=== PATIENT | male | born 2000 | race Hispanic/Latino ===

== ENCOUNTER 2018-04-06 21:18 | Emergency (ER) | payer BC ==
[2018-04-06 22:23] LABS: BASO # 0.1 K/uL (0.0-0.2); BASO % 0.6 % (0.0-2.0); EOS # 0.1 K/uL (0.0-0.7); EOS % 0.8 % (0.0-4.0); HEMOGLOBIN 15.2 g/dL (12.0-18.0); LYMPH # 3.3 K/uL (1.0-4.3); LYMPH % 22.9 % (20.0-40.0); MEAN CELL VOLUME 87.5 fl (80.0-94.0); MEAN CORPUSCULAR HEMOGLOBIN 29.4 pg (27.0-31.0); MEAN CORPUSCULAR HGB CONC 33.6 g/dL (33.0-37.0); MEAN PLATELET VOLUME 9.9 fl (7.2-11.7); MONO # 0.9 K/uL (0.0-0.8); MONO % 6.5 % (0.0-10.0); NEUT % 69.2 % (50.0-75.0); RBC 5.18 Mil/uL (4.40-5.90); RED CELL DISTRIBUTION WIDTH 13.1 % (11.5-14.5); WHITE BLOOD COUNT 14.5 K/uL (4.8-10.8)
[2018-04-06 22:45] LABS: ALB/GLOB RATIO 1.3 (1.0-2.1); ALBUMIN 4.5 g/dL (3.5-5.0); ALT/SGPT 33 U/L (21-72); AST/SGOT 28 U/L (17-59); BLOOD UREA NITROGEN 23 mg/dl (9-20); CALCIUM 9.3 mg/dL (8.4-10.2); GFR NON-AFRICAN AMERICAN > 60
[2018-04-06 22:49] LABS: BARBITURATES, UR NEGATIVE (NEGATIVE); BENZODIAZEPINES, UR NEGATIVE (NEGATIVE); OPIATES, UR NEGATIVE (NEGATIVE); PHENCYCLIDINE, UR NEGATIVE (NEGATIVE)
--- NOTE | 2018-04-07 00:18 | ED PDOC ---
HPI: Seizure Time Seen by Provider: 04/06/18 21:30 Chief Complaint (Nursing): Weakness/Neurological Deficit Past Medical History Vital Signs: Last Vital Signs Temp 98.6 F 04/06/18 21:23 Pulse 119 H 04/06/18 21:23 Resp 20 04/06/18 21:23 BP 150/84 04/06/18 21:23 Pulse Ox 100 04/06/18 21:23 - Family History Family History: States: Unknown Family Hx - Home Medications Home Medications: Ambulatory Orders Medication Instructions Recorded Oseltamivir [Tamiflu] 75 mg PO BID #10 cap 07/22/15 Ibuprofen [Motrin Tab] 600 mg PO Q8 PRN #30 tab 04/06/18 - Allergies Allergies/Adverse Reactions: Allergies Allergy/AdvReac Type Severity Reaction Status Date / Time No Known Allergies Allergy Verified 04/06/18 21:22 - Laboratory Results Result Diagrams: 04/06/18 22:10 04/06/18 22:10 - ECG O2 Sat by Pulse Oximetry: 100 Disposition - Clinical Impression Clinical Impression: Paresthesia, Headache - Disposition Referrals: Vitaliy Perez MD [Staff Provider] - 04/09/18 (FOLLOW UP WITH DR KATHARINE Mitchell) Condition: IMPROVED Prescriptions: Ibuprofen [Motrin Tab] 600 mg PO Q8 PRN #30 tab PRN Reason: Headache Instructions: Headache, Adult (DC), Paresthesias (DC)
[2018-04-07 00:23] VITALS: BP 137/81; RESP 16; TEMP 98.2
[2018-04-07 00:24] VITALS: O2SAT 100
--- NOTE | 2018-04-07 00:24 | ED PDOC ---
HPI: Neurologic - General Time Seen by Provider: 04/06/18 21:30 Chief Complaint (Nursing): Weakness/Neurological Deficit Chief Complaint (Provider): Weakness/Neurological Deficit Source: patient Exam Limitations: no limitations - History of Present Illness Severity: none Allergies/Adverse Reactions: Allergies No Known Allergies Allergy (Verified 04/06/18 21:22) Home Medications: Ambulatory Orders Oseltamivir [Tamiflu] 75 mg PO BID #10 cap 07/22/15 RX: Ibuprofen [Motrin Tab] 600 mg PO Q8 PRN #30 tab 04/06/18 Additional Complaint(s): 18 y/o male presents to the ED for evaluation of left sided numbness, onset just prior to arrival. Patient reports of numbness to the left leg that resolved spontaneously after a few minutes, then left arm numbness that also resolved spontaneously and left sided facial numbness thus causing patient to call 911. Patient reports of no symptoms on arrival. While in the ER, patient reports of having one episode of "funny" vision to the left eye. Patient states he has had 8 episodes of similar symptoms since he was [age] and had self diagnosed himself with visual migraines. Patient is now complaining of headaches. Patient denies alcohol or drug use and recent stressers. Patient states he has been recently been feeling more tired than usual despite adequate sleep. PMD: None Provided Past Medical History Reviewed: Historical Data, Nursing Documentation, Vital Signs Vital Signs: Last Vital Signs Temp 98.6 F 04/06/18 21:23 Pulse 119 H 04/06/18 21:23 Resp 20 04/06/18 21:23 BP 150/84 04/06/18 21:23 Pulse Ox 100 04/06/18 21:23 - Medical History PMH: No Chronic Diseases - Surgical History Surgical History: Hernia Repair (bilateral) Other surgeries: Adenoidectomy - Family History Family History: States: Unknown Family Hx - Social History Current smoker - smoking cessation education provided: No Alcohol: None Drugs: Denies - Home Medications Home Medications: Ambulatory Orders Medication Instructions Recorded Oseltamivir [Tamiflu] 75 mg PO BID #10 cap 07/22/15 RX: Ibuprofen [Motrin Tab] 600 mg PO Q8 PRN #30 tab 04/06/18 - Allergies Allergies/Adverse Reactions: Allergies Allergy/AdvReac Type Severity Reaction Status Date / Time No Known Allergies Allergy Verified 04/06/18 21:22 Review of Systems ROS Statement: Except As Marked, All Systems Reviewed And Found Negative (as per HPI) Eyes: Positive for: Vision Change Neurological: Positive for: Numbness (left sided numness to the left leg, arm and face), Headache Physical Exam - Reviewed Nursing Documentation Reviewed: Yes Vital Signs Reviewed: Yes - Physical Exam Appears: Positive for: No Acute Distress (anxious appearing) Head Exam: Positive for: ATRAUMATIC, NORMOCEPHALIC Skin: Positive for: Warm, Dry Eye Exam: Positive for: EOMI, PERRL. Negative for: Nystagmus ENT: Positive for: Pharynx Is (clear). Negative for: Pharyngeal Erythema, Tonsillar Exudate Neck: Positive for: Painless ROM, Supple Cardiovascular/Chest: Positive for: Regular Rate, Rhythm, Chest Non Tender. Negative for: Murmur Respiratory: Positive for: Normal Breath Sounds. Negative for: Wheezing Gastrointestinal/Abdominal: Positive for: Soft. Negative for: Tenderness Back: Positive for: Normal Inspection. Negative for: Decreased ROM Extremity: Positive for: Normal ROM. Negative for: Deformity Lymphatic: Negative for: Adenopathy Neurologic/Psych: Positive for: Alert, rn transitional care II-XII (Intact), Oriented (x3), Cerebellar Tests (Normal finger to nose cerebellar test), Other (Normal Speech). Negative for: Motor/Sensory Deficits - Laboratory Results Result Diagrams: 04/06/18 22:10 04/06/18 22:10 - ECG ECG Rhythm: Positive for: Normal QRS, Normal ST Segment, Sinus Rhythm Rate: 98 O2 Sat by Pulse Oximetry: 100 (RA) Pulse Ox Interpretation: Normal Medical Decision Making Medical Decision Making: Time: 2209 Impression: Left sided paresthesia and headache. Differentials include but not limited to anxiety, electrolyte abnormality, anemia, intracranial mass and atypical migraine. Plan: -- CT Head w/o Contrast -- EKG -- CMP -- Urine Drug Screen -- Magnesium -- Phosphorus -- TSH -- ED Urine Dipstick -- CBC with differentials -- Toradol 30 mg IV -- Tylenol 975 mg PO -- Magazine Designer -- IV Insertion -- Glucose, Blood, POC Time: 1125 CT HEAD RESULTS FINDINGS: The ventricles and sulci are symmetric bilaterally. There is no evidence of acute hemorrhage or infarct. There is no midline shift, mass effect, or extra- axial fluid collection. The osseous structures are unremarkable. The visualized paranasal sinuses and mastoid air cells are clear. IMPRESSION: Negative study. Electronically signed on Apr 06, 2018 11:25:15 ED by: Heriberto Duval M.D., MBA Certified by [employer] [facility] Fellowship Trained MRI and CT Specialist Labs unremarkable. Symptoms have not returned. DW pt findings and plan of care.Followup neurology. Scribe Attestation: Documented by Shu Chen, acting as a scribe for Bhumika Cook MD. Provider Scribe Attestation: All medical record entries made by the Scribe were at my direction and personally dictated by me. I have reviewed the chart and agree that the record accurately reflects my personal performance of the history, physical exam, medical decision making, and the department course for this patient. I have also personally directed, reviewed, and agree with the discharge instructions and disposition. Disposition - Clinical Impression Clinical Impression: Paresthesia, Headache - Disposition Referrals: Vitaliy Alcantar MD [Staff Provider] - 04/09/18 (FOLLOW UP WITH DR ALCANTAR NEXT WEEK) Disposition: Routine/Home Disposition Time: 23:30 Condition: IMPROVED Prescriptions: RX: Ibuprofen [Motrin Tab] 600 mg PO Q8 PRN #30 tab PRN Reason: Headache Instructions: Headache, Adult (DC), Paresthesias (DC) Forms: [facility] (Welsh)
[2018-04-07 00:30] VITALS: PULSE 98
--- NOTE | 2018-04-07 08:40 | CT ---
Date of service: 04/06/2018 PROCEDURE: CT HEAD WITHOUT CONTRAST. HISTORY: parasthesias LEFT side COMPARISON: None available. TECHNIQUE: Axial computed tomography images were obtained through the head/brain without intravenous contrast. Radiation dose: Total exam DLP = 798.0 mGy-cm. This CT exam was performed using one or more of the following dose reduction techniques: Automated exposure control, adjustment of the mA and/or kV according to patient size, and/or use of iterative reconstruction technique. FINDINGS: HEMORRHAGE: No intracranial hemorrhage. BRAIN: No mass effect or edema. No atrophy or chronic microvascular ischemic changes. VENTRICLES: Unremarkable. No hydrocephalus. CALVARIUM: Unremarkable. PARANASAL SINUSES: Unremarkable as visualized. No significant inflammatory changes. MASTOID AIR CELLS: Unremarkable as visualized. No inflammatory changes. OTHER FINDINGS: None. IMPRESSION: Normal CT of the Head.
--- NOTE | 2018-04-07 11:51 | CARD ---
APPROVED REPORT Date of service: 04/06/2018 EKG Measurement Heart [id number] <Conclusion> Normal sinus rhythm Normal ECG
== END 2018-04-07 00:23 | disposition home or self-care (01) ==
LOC: H.ER 21:18
DX: R20.0 Anesthesia of skin (principal); R51 Headache
CPT/HCPCS: 70450; 80053; 82948; 83735; 84100; 84443; 85025; 93005; 96374; 99283; G0480; J1885

== ENCOUNTER 2018-04-08 13:40 | Emergency (ER) | payer BC ==
--- NOTE | 2018-04-08 14:17 | CT ---
Date of service: 04/08/2018 PROCEDURE: CT HEAD WITHOUT CONTRAST. HISTORY: stroke COMPARISON: Comparison made with CT scan brain 04/06/2018 TECHNIQUE: Axial computed tomography images were obtained through the head/brain without intravenous contrast. Radiation dose: Total exam DLP = 833.44 mGy-cm. This CT exam was performed using one or more of the following dose reduction techniques: Automated exposure control, adjustment of the mA and/or kV according to patient size, and/or use of iterative reconstruction technique. FINDINGS: Note that the examination is limited by motion artifact. HEMORRHAGE: No acute parenchymal, subarachnoid nor extra-axial hemorrhage seen within limitation of this exam.. BRAIN: No obvious large acute infarct. Note that the possibility of a small hyperacute infarct cannot be excluded. Clinical correlation recommended. VENTRICLES: Unremarkable. No hydrocephalus. CALVARIUM: No acute calvarial fractures PARANASAL SINUSES: Unremarkable as visualized. No significant inflammatory changes. MASTOID AIR CELLS: Unremarkable as visualized. No inflammatory changes. OTHER FINDINGS: None. IMPRESSION: Limited motion degraded study. No definitive radiographic evidence of acute intracranial hemorrhage. These findings discussed with Dr. Terry at approximately 2:10 p.m. with written down and read back verification.
[2018-04-08 14:34] LABS: BASO # 0.1 K/uL (0.0-0.2); BASO % 0.5 % (0.0-2.0); EOS # 0.1 K/uL (0.0-0.7); EOS % 0.6 % (0.0-4.0); HEMOGLOBIN 15.5 g/dL (12.0-18.0); LYMPH # 2.8 K/uL (1.0-4.3); LYMPH % 26.4 % (20.0-40.0); MEAN CELL VOLUME 87.1 fl (80.0-94.0); MEAN CORPUSCULAR HEMOGLOBIN 29.5 pg (27.0-31.0); MEAN CORPUSCULAR HGB CONC 33.8 g/dL (33.0-37.0); MEAN PLATELET VOLUME 10.2 fl (7.2-11.7); MONO # 0.8 K/uL (0.0-0.8); MONO % 7.4 % (0.0-10.0); NEUT # 6.9 K/uL (1.8-7.0); NEUT % 65.1 % (50.0-75.0); RBC 5.27 Mil/uL (4.40-5.90); RED CELL DISTRIBUTION WIDTH 13.1 % (11.5-14.5); WHITE BLOOD COUNT 10.7 K/uL (4.8-10.8)
[2018-04-08 14:38] LABS: PROTHROMBIN TIME 11.4 Seconds (9.8-13.1)
[2018-04-08 14:41] LABS: PARTIAL THROMBOPLASTIN TIME 32.5 Seconds (25.6-37.1)
[2018-04-08 14:44] LABS: ALB/GLOB RATIO 1.3 (1.0-2.1); ALBUMIN 4.6 g/dL (3.5-5.0); ALT/SGPT 30 U/L (21-72); AST/SGOT 24 U/L (17-59); BLOOD UREA NITROGEN 19 mg/dl (9-20); CALCIUM 9.9 mg/dL (8.4-10.2); GFR NON-AFRICAN AMERICAN > 60
[2018-04-08 15:35] VITALS: RESP 19
--- NOTE | 2018-04-08 15:37 | ED PDOC ---
HPI:STROKE - Time Time: 13:43 - Historian Historian: Patient - Chief Complaint Chief Complaint: Numbness (Right sided), Slurred speech, Mental status change - Onset Date: 04/08/18 Time: 13:13 Onset: This afternoon - Timing Timing: Currently Symptomatic - Location Location: Mental Status, Speech - Severity of pain Maximum severity:: None - Exacerbated by Exacerbated by:: Nothing - Relieved by Relieved by:: Nothing - Notes: Notes:: 18 y/o male with no significant PMHx brought in by EMS for a possible stroke, onset prior to arrival. EMS received a call from the patient's brother who states the patient appeared to be not normal. There is no report of seizure activity. On arrival, patient was behaving normally. Patient complains of right sided numbness and noticing slurred speech and aphasia. However, patient states symptoms resolved prior to arrival. While in the ER, patient reports he does not feel well but has no specific complaint. Patient is a good historian. Denies headache and numbness. In addition, patient was seen here two days ago for similar symptoms and had some neurologic workup performed that resulted unremarkable. Patient was then discharged home. Patient reports of going through a los of stress. When asked if he would like to speak to a psychiatrist or a case aide, he responded "Yes". PMD: none NIHSS Stroke Scale - Date/Time Evaluation Performed Date Performed: 04/08/18 Time Performed: 13:50 When Was NIHSS Performed: Baseline - How Severe is the Stroke Level of Consciousness: 0=Alert LOC to Questions: 0=Both comments correct LOC to commands: 0=Obeys both correctly Best Gaze: 0=Normal Visual: 0=No visual loss Facial: 0=Normal Motor Arm - Left: 0=No drift Motor Arm - Right: 0=No drift Motor Leg - Left: 0=No drift Motor Leg - Right: 0=No drift Sensory: 0=Normal Best Language: 0=No aphasia Dysarthia: 0=Normal articulation Extinction & Inattention (Neglect): 0=Normal, no object rTPA Inclusion/Exclusion - Refusal of Treatment Patient Refused Treatment: No - Inclusion Criteria for Altepase Patient is 18 years or Older: Yes The Clinical Diagnosis of Ischemic Stroke That is Causing a Potentially Disabling Neurological Deficit: No Time of Onset is Well Established to be Less Than 270 Minute Before Treatment Would Begin: Yes Risk/Benefit Discussed With Patient/Family Member Present: No - Exclusion Criteria for Altepase Uncontrolled Hypertension at Time of Treatment (Systolic BP above 185 or Diastolic BP above 110 mmHg): No Active Internal Bleeding: No Known Bleeding Diathesis Including but Not Limited to: Platelets Below 100,000/mm,PTT Above 40 sec After Heparin Use, Current Use of Oral Anitcoagulant With INR Greater Than 1.7 or PT Greater Than 15 secs: No Evidence of an Intracranial Hemorrhage: No Evidence of Major Acute Infarct With Signs Greater Than 1/3 MCA Territory: No Suspicion of Subarachnoid Hemorrhage on Pretreatment Evaluation Even if CT Head Negative For Hemorrhage: No Past Medical History Reviewed: Historical Data, Nursing Documentation, Vital Signs Vital Signs: Last Vital Signs Temp 97.7 F 04/08/18 15:34 Pulse 80 04/08/18 15:34 Resp 19 04/08/18 15:34 BP 130/70 04/08/18 15:34 Pulse Ox 99 04/08/18 15:34 - Medical History PMH: No Chronic Diseases - Surgical History Surgical History: No Surg Hx, Hernia Repair (bilateral) - Family History Family History: States: Unknown Family Hx - Social History Current smoker - smoking cessation education provided: No Alcohol: None Drugs: Denies - Home Medications Home Medications: Ambulatory Orders Medication Instructions Recorded Oseltamivir [Tamiflu] 75 mg PO BID #10 cap 07/22/15 Ibuprofen [Motrin Tab] 600 mg PO Q8 PRN #30 tab 04/06/18 - Allergies Allergies/Adverse Reactions: Allergies Allergy/AdvReac Type Severity Reaction Status Date / Time No Known Allergies Allergy Verified 04/06/18 21:22 Review of Systems ROS Statement: Except As Marked, All Systems Reviewed And Found Negative Neurological: Positive for: Numbness (at onset ONLY), Change in Speech, Other (Possible stroke). Negative for: Headache Physical Exam - Reviewed Nursing Documentation Reviewed: Yes Vital Signs Reviewed: Yes - Physical Exam Appears: Positive for: No Acute Distress Head Exam: Positive for: ATRAUMATIC, NORMOCEPHALIC Skin: Positive for: Normal Color, Warm, Dry Eye Exam: Positive for: Normal appearance, EOMI, PERRL Neck: Positive for: Normal, Painless ROM Cardiovascular/Chest: Positive for: Regular Rate, Rhythm. Negative for: Murmur Respiratory: Positive for: Normal Breath Sounds. Negative for: Respiratory Distress Gastrointestinal/Abdominal: Positive for: Normal Exam, Soft. Negative for: Tenderness Back: Positive for: Normal Inspection. Negative for: L CVA Tenderness, R CVA Tenderness Extremity: Positive for: Normal ROM. Negative for: Pedal Edema, Deformity Neurologic/Psych: Positive for: Alert, Oriented. Negative for: Motor/Sensory Deficits - Laboratory Results Result Diagrams: 04/08/18 14:00 04/08/18 14:00 - ECG O2 Sat by Pulse Oximetry: 99 (RA) Pulse Ox Interpretation: Normal - Progress Re-evaluation Time: 16:53 Condition: Re-examined, Improved Medical Decision Making Medical Decision Making: Time: 1400 Impression: Paresthesia, Anxiety Differentials include but not limited to atypical seizures, atypical migraines, panic disorder with psychosympatic syndrome. Plan: -- EKG -- CT Head w/o contrast -- Health And Safety Inspector -- Glucose, Blood, POC -- Nursing Swallow Screen -- Alcohol Serum -- CMP -- CBC with Differentials -- PTT -- Prothrombin Time Time: [address] RESULTS FINDINGS: Note that the examination is limited by motion artifact. HEMORRHAGE: No acute parenchymal, subarachnoid nor extra-axial hemorrhage seen within limitation of this exam.. BRAIN: No obvious large acute infarct. Note that the possibility of a small hyperacute infarct cannot be excluded. Clinical correlation recommended. VENTRICLES: Unremarkable. No hydrocephalus. CALVARIUM: No acute calvarial fractures PARANASAL SINUSES: Unremarkable as visualized. No significant inflammatory changes. MASTOID AIR CELLS: Unremarkable as visualized. No inflammatory changes. OTHER FINDINGS: None. IMPRESSION: Limited motion degraded study. No definitive radiographic evidence of acute intracranial hemorrhage. These findings discussed with Dr. Terry at approximately 2:10 p.m. with xuan jorgensen and read back verification. Time: 1530 Plan: -- Urine Drug Screen Time: 1638 -- Spoke to neurologist, Dr. Singh who agrees with plan and ER assessment of lab and CT results. Dr. Singh states it does not appear to be a CVA but appears to be more of a psychological disorder. Patient is to be referred to crisis for evaluation. Patient is medically clear and is stable for discharge, pending crisis referrals for outpatient treatment. Scribe Attestation: Documented by Shu Chen, acting as a scribe Radha Terry MD. Provider Scribe Attestation: All medical record entries made by the Scribe were at my direction and personally dictated by me. I have reviewed the chart and agree that the record accurately reflects my personal performance of the history, physical exam, medical decision making, and the department course for this patient. I have also personally directed, reviewed, and agree with the discharge instructions and disposition. Disposition - Clinical Impression Clinical Impression: Paresthesia, Panic attack - Patient ED Disposition Is Patient to be Admitted: No Counseled Patient/Family Regarding: Studies Performed, Diagnosis, Need For Followup - Disposition Referrals: [facility] [Outside] Vitaliy Perez MD [Staff Provider] - Disposition: Routine/Home Disposition Time: 16:54 Condition: GOOD Additional Instructions: HUGO GRIFFIN, thank you for letting us take care of you today. Your provider was Steve Terry MD and you were treated for POSSIBLE SEIZURE. The emergency medical care you received today was directed at your acute symptoms. If you were prescribed any medication, please fill it and take as directed. It may take several days for your symptoms to resolve. Return to the Emergency Department if your symptoms worsen, do not improve, or if you have any other problems. Please contact your doctor or call one of the physicians/clinics you have been referred to that are listed on the Patient Visit Information form that is included in your discharge packet. Bring any paperwork you were given at discharge with you along with any medications you are taking to your follow up visit. Our treatment cannot replace ongoing medical care by a primary care provider outside of the emergency department. Thank you for allowing the [facility] team to be part of your care today. If you had an X-Ray or CT scan: A Radiologist will review the ED reading if any change in treatment is needed we will contact you. If you had a blood, urine, or wound culture: It will take several days for the results, if any change in treatment is needed we will contact you. If you had an STI test: It will take 48 hours for the results. Please call after 1 week if you have not heard back. Instructions: Anxiety, Adult (DC), Paresthesias (DC) Forms: [facility] (Lao)
[2018-04-08 16:00] LABS: BARBITURATES, UR NEGATIVE (NEGATIVE); BENZODIAZEPINES, UR NEGATIVE (NEGATIVE); OPIATES, UR NEGATIVE (NEGATIVE); PHENCYCLIDINE, UR NEGATIVE (NEGATIVE)
[2018-04-08 18:50] VITALS: BP 130/75; PULSE 78; TEMP 97; O2SAT 98
--- NOTE | 2018-04-08 22:46 | CARD ---
APPROVED REPORT Date of service: 04/08/2018 EKG Measurement Heart [id number] <Conclusion> Sinus tachycardia Incomplete right bundle branch block Borderline ECG
== END 2018-04-08 18:52 | disposition home or self-care (01) ==
LOC: H.ER 13:40
DX: R20.2 Paresthesia of skin (principal); F41.0 Panic disorder [episodic paroxysmal anxiety]
CPT/HCPCS: 70450; 80053; 82948; 85025; 85610; 85730; 93005; 99284; G0480